=== PATIENT | female | born 1995 | race African-American/Black ===

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

== ENCOUNTER 2017-05-05 08:35 | Emergency (ER) | payer MEDICAID ==
[2017-05-05] MEDS ORDERED: IBUPROFEN 800 MG TABLET PO ONE (09:27)
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
[2017-05-05 10:46] VITALS: BP 141/86
== END 2017-05-05 10:47 | disposition home or self-care (01) ==
LOC: ER 08:35
DX: S63.615A Unspecified sprain of left ring finger, initial encounter (principal); Y04.0XXA Assault by unarmed brawl or fight, initial encounter; M79.642 Pain in left hand; M79.645 Pain in left finger(s); E11.9 Type 2 diabetes mellitus without complications; R03.0 Elevated blood-pressure reading, without diagnosis of hypertension; Z87.891 Personal history of nicotine dependence
CPT/HCPCS: 99283; 73130; J3490

== ENCOUNTER 2018-05-10 23:23 | Emergency (ER) | payer MEDICAID ==
[2018-05-10 23:39] VITALS: BP 167/92
--- NOTE | 2018-05-11 00:03 | ER Document Report ---
ED General - General Chief Complaint: Psych Problem Stated Complaint: SUICIDAL IDEATION Time Seen by Provider: 05/11/18 00:00 Notes: Patient is a 22-year-old female who presents by EMS for concerns of possible suicidal ideation. Patient states that a patrol police sergeant found her, states that a person named Jyoti had been concerned that she had made suicidal statements and should be taken to the hospital. Patient states that she was told she could either come voluntarily will be placed on involuntary commitment and transported to the hospital. The patient denies adamantly making any suicidal statements or gestures to anybody. She states that she should not be here, this is a waste of time, denies any acute medical complaints of any kind. TRAVEL OUTSIDE OF THE [place] IN LAST 30 DAYS: No - Related Data Allergies/Adverse Reactions: hydrocodone [From Vicodin] Adverse Reaction (Severe, Verified 05/05/17 09:12) Vomiting Past Medical History - General Information source: Patient - Social History Smoking Status: Never Smoker Frequency of alcohol use: None Drug Abuse: None Lives with: Homeless Family History: Reviewed & Not Pertinent - Past Medical History Cardiac Medical History: Denies: Hx Coronary Artery Disease, Hx Heart Attack, Hx Hypertension Pulmonary Medical History: Denies: Hx Asthma, Hx Bronchitis, Hx COPD, Hx Pneumonia Neurological Medical History: Denies: Hx Cerebrovascular Accident, Hx Seizures Endocrine Medical History: Reports: Hx Diabetes Mellitus Type 2 Renal/ Medical History: Denies: Hx Peritoneal Dialysis GI Medical History: Reports: Hx Gastroesophageal Reflux Disease Musculoskeltal Medical History: Denies Hx Arthritis Psychiatric Medical History: Reports: Hx Anxiety, Hx Depression - anxiety Past Surgical History: Reports: Hx Gynecologic Surgery - Rt. oophorectomy - Immunizations Immunizations up to date: Yes Hx Diphtheria, Pertussis, Tetanus Vaccination: Yes Review of Systems - Review of Systems Notes: Constitutional: Negative for fever. HENT: Negative for sore throat. Eyes: Negative for visual changes. Cardiovascular: Negative for chest pain. Respiratory: Negative for shortness of breath. Gastrointestinal: Negative for abdominal pain, vomiting or diarrhea. Genitourinary: Negative for dysuria. Musculoskeletal: Negative for back pain. Skin: Negative for rash. Neurological: Negative for headaches, weakness or numbness. 10 point ROS negative except as marked above and in HPI. Physical Exam - Vital signs Vitals: Pulse Resp BP Pulse Ox 86 16 167/92 H 99 05/10/18 23:27 05/10/18 23:27 05/10/18 23:27 05/10/18 23:27 Interpretation: Hypertensive Notes: PHYSICAL EXAMINATION: GENERAL: Well-appearing, well-nourished and in no acute distress. HEAD: Atraumatic, normocephalic. EYES: sclera anicteric, conjunctiva are normal. ENT: Moist mucous membranes. NECK: Normal range of motion LUNGS: Normal work of breathing HEART: 2+ radial pulses bilaterally EXTREMITIES: no pitting or edema. No cyanosis. NEUROLOGICAL: No focal neurological deficits. Moves all extremities spontaneously and on command. PSYCH: Normal mood, normal affect. SKIN: Warm, Dry, normal turgor, no rashes or lesions noted. Course - Re-evaluation Re-evalutation: 05/11/18 00:00 Patient presents after somebody alleged that she had expressed suicidal ideation although she does not know who this person is and the patient does not arrive on involuntary commitment paperwork. The patient adamantly denies any suicidal thoughts, intention to harm herself or any plans to harm herself. She states that she has no idea who the person "Jyoti" is and that she does not have any friends that she would have said she was suicidal to. She is quite clear in stating that in the past she has had suicidal thoughts but denies any recent suicidal thoughts stating "this is all a bunch of bullshit". There are no listed contacts or anybody who I could call to verify the original concern and the patient was not placed on involuntary commitment by the patrol police sergeant who originally transported her to the hospital. I therefore did not have any means by which she states the patient has expressed any plans to harm herself and she is quite clearly and adamantly denying any suicidal ideation at this time. She denies any acute medical concerns. She has not meet IVC criteria and would like to leave. I have offered her to remain in the emergency department if she would like and speak psychiatry which she has declined stating she does not need this service. - Vital Signs Vital signs: Temp Pulse Resp BP Pulse Ox 86 16 167/92 H 99 05/10/18 23:27 05/10/18 23:27 05/10/18 23:27 05/10/18 23:27 Discharge - Discharge Clinical Impression: Well adult health check, No complaints Condition: Good Disposition: HOME, SELF-CARE Additional Instructions: Please return if you have thoughts of wanting to hurt yourself, hurt others, or have any other symptoms that are concerning to you.
== END 2018-05-11 00:06 | disposition home or self-care (01) ==
LOC: ER 23:23
DX: Z71.1 Person with feared health complaint in whom no diagnosis is made (principal); E11.9 Type 2 diabetes mellitus without complications
CPT/HCPCS: 99284

== ENCOUNTER 2018-07-09 03:55 | Emergency (ER) | payer MEDICAID ==
--- NOTE | 2018-07-09 05:13 | ER Document Report ---
ED General - General Chief Complaint: Overdose Stated Complaint: POSSIBLE OVERDOSE Time Seen by Provider: 07/09/18 04:44 TRAVEL OUTSIDE OF THE [place] IN LAST 30 DAYS: No - HPI Notes: Patient is a 22-year-old female that presents to the emergency department for chief complaint of Benadryl overdose. Patient presents to the emergency room by EMS for Benadryl overdose. HPI is limited because patient is not cooperative and EMS report given prior to my evaluation. EMS was called by patient's friend who found her sleeping heavily on the couch. Patient endorsed taking "a lot" of Benadryl. She is not sure when she took the Benadryl. She will not tell me why she took "a lot" of Benadryl. When I asked if she is suicidal or trying to hurt herself she will not answer the question and only states "you cannot commit me to the hospital". Patient has linear cuts on her arm and when I asked her how she got them she will not answer and just tells me they are old. I asked her specifically did she cut herself and again she would not answer. She did state "I am going to be difficult and not cooperate with you". She currently has no complaints. Past Medical History: Anxiety and depression Past Surgical History: Unknown Social History: Unknown Family History: Reviewed and noncontributory for presenting illness Allergies: Reviewed, see documented allergy list. REVIEW OF SYSTEMS: CONSTITUTIONAL : No fever No chills No diaphoresis No recent illness EENT: No vision changes No congestion No sore throat CARDIOVASCULAR: No chest pain No palpitations No shortness of breath RESPIRATORY: No shortness of breath No cough No difficulty breathing GASTROINTESTINAL: No abdominal pain No nausea No vomiting No diarrhea GENITOURINARY: No dysuria No hematuria No difficulty urinating MUSCULOSKELETAL: No back pain No leg pain No arm pain SKIN: No rashes No lesions LYMPHATIC: No swollen, enlarged glands. NEUROLOGICAL: No lightheadedness No headache No weakness No paresthesias PSYCHIATRIC: No anxiety No depression PHYSICAL EXAMINATION: Vital signs reviewed, nursing noted reviewed. GENERAL: Well-appearing, well-nourished and in no acute distress. HEAD: Atraumatic, normocephalic. EYES: Eyes appear normal, extraocular movements intact, sclera anicteric, conjunctiva are normal. ENT: nares patent, oropharynx clear without exudates. Moist mucous membranes. NECK: Normal range of motion, supple without lymphadenopathy LUNGS: Breath sounds clear to auscultation bilaterally and equal. No wheezes rales or rhonchi. HEART: Regular rate and rhythm without murmurs ABDOMEN: Soft, nontender, normoactive bowel sounds. No rebound, guarding, or rigidity. No masses appreciated. EXTREMITIES: Nontender, good range of motion, no pitting or edema. NEUROLOGICAL: No focal neurological deficits. Moves all extremities spontaneously Motor and sensory grossly intact on exam. PSYCH: No eye contact, agitated, not cooperative SKIN: Warm, Dry, normal turgor. Multiple linear superficial lacerations to left forearm with dried blood. No active bleeding. Bilateral forearm linear scars and right anterior thigh linear scar. No acute lacerations to lower extremities. - Related Data Allergies/Adverse Reactions: hydrocodone [From Vicodin] Adverse Reaction (Severe, Verified 05/05/17 09:12) Vomiting Past Medical History - Social History Smoking Status: Unknown if Ever Smoked Family History: Reviewed & Not Pertinent Patient has suicidal ideation: No Patient has homicidal ideation: No - Past Medical History Cardiac Medical History: Denies: Hx Coronary Artery Disease, Hx Heart Attack, Hx Hypertension Pulmonary Medical History: Denies: Hx Asthma, Hx Bronchitis, Hx COPD, Hx Pneumonia Neurological Medical History: Denies: Hx Cerebrovascular Accident, Hx Seizures Endocrine Medical History: Reports: Hx Diabetes Mellitus Type 2 Renal/ Medical History: Denies: Hx Peritoneal Dialysis GI Medical History: Reports: Hx Gastroesophageal Reflux Disease Musculoskeletal Medical History: Denies Hx Arthritis Psychiatric Medical History: Reports: Hx Anxiety, Hx Depression - anxiety Past Surgical History: Reports: Hx Gynecologic Surgery - Rt. oophorectomy - Immunizations Immunizations up to date: Yes Hx Diphtheria, Pertussis, Tetanus Vaccination: Yes Review of Systems - Review of Systems Notes: Dictated Physical Exam - Vital signs Vitals: Resp Pulse Ox 21 H 100 07/09/18 04:06 07/09/18 04:06 - Notes Notes: Dictated Course - Re-evaluation Re-evalutation: 07/09/18 05:13 Vital signs reviewed. Patient is hypertensive with unknown history of hypertension. She does admit to taking "a lot" of Benadryl but will not tell me why. I do suspect she is intending self-harm. She has superficial abrasions consistent with self-inflicted cuts on her left forearm. She is in no acute distress and is mentating appropriately. She has no signs of anticholinergic overdose at presentation. Case was discussed with poison control who recommends monitoring for 6 hours. If patient still not displaying any symptoms of anticholinergic overdose at 6 hours she is able to be medically cleared for psychiatric evaluation. 07/09/18 06:05 Laboratory 07/09/18 07/09/18 07/09/18 05:04 05:04 05:04 WBC 11.1 H RBC 4.50 Hgb 11.5 L Hct 35.5 L MCV 79 L MCH 25.5 L MCHC 32.3 RDW 15.1 H Plt Count 209 Seg Neutrophils % 61.0 Lymphocytes % 31.1 Monocytes % 5.2 Eosinophils % 2.2 Basophils % 0.5 Absolute Neutrophils 6.8 Absolute Lymphocytes 3.4 Absolute Monocytes 0.6 Absolute Eosinophils 0.2 Absolute Basophils 0.1 Sodium 141.0 Potassium 4.2 Chloride 108 H Carbon Dioxide 20 L Anion Gap 13 BUN 8 Creatinine 0.75 Est GFR ( Amer) > 60 Est GFR (Non-Af Amer) > 60 Glucose 84 Calcium 9.2 Total Bilirubin 0.4 Direct Bilirubin 0.3 Neonat Total Bilirubin Not Reportable Neonat Direct Bilirubin Not Reportable Neonat Indirect Bili Not Reportable AST 29 ALT 31 Alkaline Phosphatase 60 Total Protein 8.0 Albumin 4.2 Serum HCG, Qual NEGATIVE Salicylates < 1.0 L Acetaminophen < 10 L Serum Alcohol < 10 Care signed over to Dr. Cabrera with Urine results pending. Plan to obtain psych evaluaiton this AM for possible suicide attempt. If asymptomatic at 10:30 she can be medically cleared for psychiatric evaluation. - Vital Signs Vital signs: Temp Pulse Resp BP Pulse Ox 20 152/104 H 100 07/09/18 04:07 07/09/18 04:07 07/09/18 04:07 - Laboratory Result Diagrams: 07/09/18 05:04 07/09/18 05:04 Laboratory results interpreted by me: 07/09/18 07/09/18 05:04 05:04 WBC 11.1 H Hgb 11.5 L Hct 35.5 L MCV 79 L MCH 25.5 L RDW 15.1 H Chloride 108 H Carbon Dioxide 20 L Salicylates < 1.0 L Acetaminophen < 10 L - EKG Interpretation by Me Additional EKG results interpreted by me: 07/09/18 06:05 Normal sinus rhythm, rate 75, normal axis, normal QTC, no ectopy, T-wave inversion in lead III Discharge - Discharge Clinical Impression: Diphenhydramine overdose Qualifiers: Encounter type: initial encounter Injury intent: undetermined intent Qualified Code(s): T45.0X4A - Poisoning by antiallergic and antiemetic drugs, undetermined , initial encounter Forearm laceration Qualifiers: Encounter type: initial encounter Laterality: left Qualified Code(s): S51.812A - Laceration without foreign body of left forearm, initial encounter
[2018-07-09 05:15] LABS: ABSOLUTE BASOPHILS # (AUTO) 0.1 10^3/uL (0.0-0.2); ABSOLUTE EOSINOPHILS # (AUTO) 0.2 10^3/uL (0.0-0.6); ABSOLUTE LYMPHOCYTES (AUTO) 3.4 10^3/uL (0.5-4.7); ABSOLUTE MONOCYTES (AUTO) 0.6 10^3/uL (0.1-1.4); ABSOLUTE NEUT (AUTO) 6.8 10^3/uL (1.7-8.2); BASOPHILS % (AUTO) 0.5 % (0-2); EOSINOPHILS % (AUTO) 2.2 % (0-6); HEMATOCRIT 35.5 % (36.0-47.0); HEMOGLOBIN 11.5 g/dL (12.0-15.5); LYMPHOCYTES % (AUTO) 31.1 % (13-45); MEAN CORPUSCULAR HEMOGLOBIN 25.5 pg (27.0-33.4); MEAN CORPUSCULAR HGB CONC 32.3 g/dL (32.0-36.0); MEAN CORPUSCULAR VOLUME 79 fl (80-97); MONOCYTES % (AUTO) 5.2 % (3-13); PLATELET COUNT 209 10^3/uL (150-450); RED CELL DISTRIBUTION WIDTH 15.1 % (11.5-14.0); TOTAL CELLS COUNTED % (AUTO) 100 %; WHITE BLOOD COUNT 11.1 10^3/uL (4.0-10.5)
[2018-07-09 05:36] LABS: ALANINE AMINOTRANSFERASE 31 U/L (9-52); ALBUMIN 4.2 g/dL (3.5-5.0); ALKALINE PHOSPHATASE 60 U/L (38-126); ANION GAP 13 (5-19); ASPARTATE AMINO TRANSFERASE 29 U/L (14-36); BILIRUBIN,DIRECT 0.3 mg/dL (0.0-0.4); BILIRUBIN,TOTAL 0.4 mg/dL (0.2-1.3); BLOOD UREA NITROGEN 8 mg/dL (7-20); CALCIUM 9.2 mg/dL (8.4-10.2); CARBON DIOXIDE 20 mmol/L (22-30); CHLORIDE 108 mmol/L (98-107); GLUCOSE 84 mg/dL (75-110); POTASSIUM 4.2 mmol/L (3.6-5.0)
[2018-07-09 05:40] LABS: ACETAMINOPHEN < 10 ug/mL (10-30); ALCOHOL < 10 mg/dL (NONE DETECTED); SALICYLATE < 1.0 mg/dL (2.0-20.0)
[2018-07-09 10:07] LABS: AMORPHOUS SEDIMENT,URINE TRACE /HPF; APPEARANCE,URINE CLEAR; BILIRUBIN,URINE NEGATIVE (NEGATIVE); COLOR,URINE YELLOW; GLUCOSE, URINE NEGATIVE (NEGATIVE); KETONES,URINE NEGATIVE (NEGATIVE); LEUKOCYTE ESTERASE,URINE TRACE (NEGATIVE); NITRITE,URINE NEGATIVE (NEGATIVE); PROTEIN,URINE NEGATIVE (NEGATIVE); URINE SPECIFIC GRAVITY 1.019
--- NOTE | 2018-07-09 10:08 | ER Document Report ---
Doctor's Note Notes: 07/09/18 10:06 Rounds: Chart reviewed and patient interviewed. Patient is here to be evaluated for an overdose of Benadryl. Lab studies were all essentially normal. Patient's EKG is normal. No arrhythmias or QT changes. Vital signs are all normal. Patient says she is hungry and wants something to eat. Patient appears to be medically stable for transfer or discharge. Danika Muse MD 07/09/18 12:28 Patient's drug screen came back positive for benzos, cocaine, and marijuana. Repeat vitals are all normal. No tachycardia noted. I do not think that the patient is going to suffer any adverse outcome from the Benadryl and cocaine. Patient appears to be medically stable for transfer or discharge. Danika Muse MD
[2018-07-09 10:23] LABS: URINE AMPHETAMINES SCREEN NEGATIVE; URINE BARBITURATES SCREEN NEGATIVE; URINE BENZODIAZEPINES SCREEN UNCONFIRMED POSITIVE; URINE COCAINE SCREEN UNCONFIRMED POSITIVE; URINE MARIJUANA (THC) SCREEN UNCONFIRMED POSITIVE; URINE METHADONE SCREEN NEGATIVE; URINE PHENCYCLIDINE SCREEN NEGATIVE
--- NOTE | 2018-07-09 13:13 | EKG REPORT ---
SEVERITY:- NORMAL ECG - SINUS RHYTHM : Confirmed by: Pa Urias MD 09-Jul-2018 13:12:40
--- NOTE | 2018-07-09 14:22 | PSYCHOLOGICAL NOTE ---
Psych Note - Psych Note Psych Note: Reason for consult: Intentional overdose Contact permissions: Patient refused Patient is a 22-year-old female that presents to the emergency department for chief complaint of Benadryl overdose. Patient discloses that she arrived to [facility] ED via EMS because her sister called. She states that they called because "they said I took too much Benadryl." Patient denies this stating "I didn't take that much... not enough to kill me... I only took 5." When asked why she took the medication she stated that someone told her it would help her sleep. When asked about her cocaine use she denied saying that it has been a long time since she has used. One reminded it was in her toxicology screening patient became irritable and defensive. When asked if she received any marijuana that was laced she stated, "you saw the marijuana too?.. do you think my blunt was laced?" Patient denies wanting to hurt herself or others and states that she has had mental health services through [facility] in the past but has been off medication for years. She reports that she would like to get back into therapy. She states she has diagnosis of anxiety and depression. Patient is alert and orientated to person, place, time and circumstance. Mood is slightly irritable with congruent affect. Patient denies suicidal and homicidal ideation. Delusions are absent behaviors congruent with an intact reality based presentation i.e. organized and linear thought process. Eye contact is fair. Conversational speech was within normal rate, tone and prosody. Intellectual abilities appear to be below average range. Attention and concentration are fair. Insight, judgment, impulse control are fair. 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 Patient no longer meets IVC criteria per [place] GS 122C. Patient states she took Benadryl to try to get some sleep. Patient also has marijuana, cocaine, and benzodiazepines in her system. Patient attempted to deny using any drugs but then asked "do you think my blunt was laced?" Patient is recommended for mental health and substance abuse outpatient treatment. Patient is primary outpatient mental health provider [facility]. Dr. Cannon was consulted and the care and management of this patient; attending physician is agreement with recommendations and disposition.
[2018-07-09 15:04] VITALS: BP 146/82
== END 2018-07-09 15:13 | disposition home or self-care (01) ==
LOC: ER 03:55
DX: T45.0X4A Poisoning by antiallergic and antiemetic drugs, undetermined, initial encounter (principal); S51.812A Laceration without foreign body of left forearm, initial encounter; X58.XXXA Exposure to other specified factors, initial encounter; E11.9 Type 2 diabetes mellitus without complications; I10 Essential (primary) hypertension
CPT/HCPCS: 36415; 80053; 80307; 81001; 84703; 85025; 93005; 93010; 99285

== ENCOUNTER 2018-10-13 19:25 | Emergency (ER) | payer MEDICAID ==
[2018-10-13] MEDS ORDERED: ONDANSETRON HCL INJ/PF 4 MG/2 ML SDV IV ONE (20:34)
[2018-10-13] MEDS ORDERED: NORMAL SALINE 1000 ML 1,000 ML IV ONE (20:34)
--- NOTE | 2018-10-13 20:36 | ER Document Report ---
ED Medical Screen (RME) - General Chief Complaint: Nausea/Vomiting/Diarrhea Stated Complaint: VOMITING Time Seen by Provider: 10/13/18 20:30 Notes: Patient is a 22-year-old female that presents to the emergency department for chief complaint of multiple complaints including generalized body aches, lightheadedness, nausea, vomiting. Patient also thinks she may be , potentially up to 4 months, she states she has had one positive and one negative home test but she does not recall when that was. ROS: Other than noted above, the 12 point review of systems was reviewed with the patient and were negative, all pertinent findings are included in the HPI. PHYSICAL EXAMINATION: Vital signs reviewed. GENERAL: Well-appearing, well-nourished and in no acute distress. HEAD: Atraumatic, normocephalic. EYES: Pupils equal round extraocular movements intact, conjunctiva are normal. ENT: Nares patent NECK: Normal range of motion CV: Heart regular rate and rhythm LUNGS: No respiratory distress Abdomen: Mild abdominal tenderness to palpation, does not appear to be gravid. Musculoskeletal: Normal range of motion NEUROLOGICAL: Normal speech PSYCH: Normal mood, normal affect. MDM: Patient seen and examined for rapid initial assessment. Vital signs reviewed. A comprehensive ED assessment and evaluation of the patient, analysis of test results and completion of the medical decision making process will be conducted by additional ED providers. *Note is created using voice recognition software and may contain spelling, syntax or grammatical errors. TRAVEL OUTSIDE OF THE [place] IN LAST 30 DAYS: No - Related Data Allergies/Adverse Reactions: acetaminophen Allergy (Severe, Verified 10/13/18 20:33) Swelling of hands and/or feet hydrocodone [From Vicodin] Adverse Reaction (Severe, Verified 05/05/17 09:12) Vomiting Past Medical History - Past Medical History Cardiac Medical History: Denies: Hx Coronary Artery Disease, Hx Heart Attack, Hx Hypertension Pulmonary Medical History: Denies: Hx Asthma, Hx Bronchitis, Hx COPD, Hx Pneumonia Neurological Medical History: Denies: Hx Cerebrovascular Accident, Hx Seizures Endocrine Medical History: Reports: Hx Diabetes Mellitus Type 2 Renal/ Medical History: Denies: Hx Peritoneal Dialysis GI Medical History: Reports: Hx Gastroesophageal Reflux Disease Musculoskeltal Medical History: Denies Hx Arthritis Psychiatric Medical History: Reports: Hx Anxiety, Hx Depression - anxiety Past Surgical History: Reports: Hx Gynecologic Surgery - Rt. oophorectomy - Immunizations Immunizations up to date: Yes Hx Diphtheria, Pertussis, Tetanus Vaccination: Yes Physical Exam - Vital signs Vitals: Temp Pulse Resp BP Pulse Ox 98.8 F 110 H 20 147/97 H 100 10/13/18 19:46 10/13/18 19:46 10/13/18 19:46 10/13/18 19:46 10/13/18 19:46 Course - Vital Signs Vital signs: Temp Pulse Resp BP Pulse Ox 98.8 F 110 H 20 147/97 H 100 10/13/18 19:46 10/13/18 19:46 10/13/18 19:46 10/13/18 19:46 10/13/18 19:46
[2018-10-13 22:24] LABS: ABSOLUTE BASOPHILS # (AUTO) 0.1 10^3/uL (0.0-0.2); ABSOLUTE EOSINOPHILS # (AUTO) 0.2 10^3/uL (0.0-0.6); ABSOLUTE LYMPHOCYTES (AUTO) 4.6 10^3/uL (0.5-4.7); ABSOLUTE MONOCYTES (AUTO) 0.7 10^3/uL (0.1-1.4); ABSOLUTE NEUT (AUTO) 12.3 10^3/uL (1.7-8.2); BASOPHILS % (AUTO) 0.6 % (0-2); HEMATOCRIT 37.5 % (36.0-47.0); HEMOGLOBIN 12.2 g/dL (12.0-15.5); LYMPHOCYTES % (AUTO) 25.9 % (13-45); MEAN CORPUSCULAR HGB CONC 32.6 g/dL (32.0-36.0); MEAN CORPUSCULAR VOLUME 80 fl (80-97); MONOCYTES % (AUTO) 3.9 % (3-13); PLATELET COUNT 283 10^3/uL (150-450); RED CELL DISTRIBUTION WIDTH 14.8 % (11.5-14.0); SEGMENTED NEUTROPHILS % (AUTO) 68.6 % (42-78); TOTAL CELLS COUNTED % (AUTO) 100 %; WHITE BLOOD COUNT 17.9 10^3/uL (4.0-10.5)
[2018-10-13 22:42] LABS: ALANINE AMINOTRANSFERASE 16 U/L (9-52); ALBUMIN 4.9 g/dL (3.5-5.0); ALKALINE PHOSPHATASE 68 U/L (38-126); ANION GAP 12 (5-19); ASPARTATE AMINO TRANSFERASE 22 U/L (14-36); BILIRUBIN,DIRECT 0.3 mg/dL (0.0-0.4); BILIRUBIN,TOTAL 0.3 mg/dL (0.2-1.3); BLOOD UREA NITROGEN 12 mg/dL (7-20); CALCIUM 9.5 mg/dL (8.4-10.2); CARBON DIOXIDE 25 mmol/L (22-30); CHLORIDE 104 mmol/L (98-107); GLUCOSE 79 mg/dL (75-110); POTASSIUM 4.4 mmol/L (3.6-5.0); SODIUM 140.9 mmol/L (137-145); TOTAL PROTEIN 8.9 g/dL (6.3-8.2)
[2018-10-13 22:47] LABS: APPEARANCE,URINE SLIGHTLY-CLOUDY; BILIRUBIN,URINE NEGATIVE (NEGATIVE); COLOR,URINE YELLOW; GLUCOSE, URINE NEGATIVE (NEGATIVE); KETONES,URINE NEGATIVE (NEGATIVE); LEUKOCYTE ESTERASE,URINE SMALL (NEGATIVE); NITRITE,URINE NEGATIVE (NEGATIVE); PROTEIN,URINE 30 mg/dL (NEGATIVE); URINE SPECIFIC GRAVITY 1.029
[2018-10-13 23:07] LABS: A TYPE INFLUENZA AG NEGATIVE (NEGATIVE); B INFLUENZA AG NEGATIVE (NEGATIVE)
--- NOTE | 2018-10-13 23:22 | RADIOLOGY REPORT (SQ) ---
EXAM DESCRIPTION: XR CHEST 2 VIEWS COMPLETED DATE/TME: 10/13/2018 20:34 CLINICAL HISTORY: 22 years, Female, cough COMPARISON: None. NUMBER OF VIEWS: 2 TECHNIQUE: Frontal and lateral views of the chest LIMITATIONS: None. FINDINGS: Heart size is normal. Lungs are clear. No pneumothorax IMPRESSION: Negative chest copyright 2010 [employer]- All Rights Reserved
--- NOTE | 2018-10-13 23:59 | ER Document Report ---
ED GI/ - General Chief Complaint: Nausea/Vomiting/Diarrhea Stated Complaint: VOMITING Time Seen by Provider: 10/13/18 23:47 Information source: Patient Notes: Patient is a 22-year-old female with a history of ovarian cysts as well as other chronic health conditions including mental illness who presents with report of "full body pain" that began earlier today. Patient is tearful and reports pain is "all over my body," is an aching sensation that comes and goes, also has a small amount of lower abdominal discomfort that is identical in character and quality. Patient denies taking medication before coming to the emergency department. She denies known injury, no dysuria or hematuria, no diarrhea, no vaginal bleeding or discharge. TRAVEL OUTSIDE OF THE [place] IN LAST 30 DAYS: No - HPI Patient complains to provider of: Abdominal pain Onset: This afternoon Timing/Duration: Sudden Quality of pain: Achy, Cramping Severity at maximum: Moderate Severity in ED: Moderate Pain Level: 2 Location: Low back Vaginal bleeding (Compared to normal period): None Sexual history: Active Associated symptoms: Other - Body aches Exacerbated by: Denies Relieved by: Denies Similar symptoms previously: No Recently seen / treated by doctor: No - Related Data Allergies/Adverse Reactions: acetaminophen Allergy (Severe, Verified 10/13/18 20:33) Swelling of hands and/or feet hydrocodone [From Vicodin] Adverse Reaction (Severe, Verified 05/05/17 09:12) Vomiting Past Medical History - General Information source: Patient - Social History Smoking Status: Unknown if Ever Smoked Chew tobacco use (# tins/day): No Frequency of alcohol use: None Drug Abuse: None Lives with: Alone Family History: Reviewed & Not Pertinent Patient has suicidal ideation: No Patient has homicidal ideation: No - Past Medical History Cardiac Medical History: Reports: None Denies: Hx Coronary Artery Disease, Hx Heart Attack, Hx Hypertension Pulmonary Medical History: Reports: None Denies: Hx Asthma, Hx Bronchitis, Hx COPD, Hx Pneumonia EENT Medical History: Reports: None Neurological Medical History: Reports: None. Denies: Hx Cerebrovascular Accident, Hx Seizures Endocrine Medical History: Reports: Hx Diabetes Mellitus Type 2 Renal/ Medical History: Reports: None. Denies: Hx Peritoneal Dialysis Malignancy Medical History: Reports: None GI Medical History: Reports: None, Hx Gastroesophageal Reflux Disease Musculoskeletal Medical History: Reports None, Denies Hx Arthritis Skin Medical History: Reports None Psychiatric Medical History: Reports: Hx Anxiety, Hx Depression - anxiety Traumatic Medical History: Reports: None Infectious Medical History: Reports: None Past Surgical History: Reports: Hx Gynecologic Surgery - Rt. oophorectomy - Immunizations Immunizations up to date: Yes Hx Diphtheria, Pertussis, Tetanus Vaccination: Yes Review of Systems - Review of Systems Constitutional: No symptoms reported EENT: No symptoms reported Cardiovascular: No symptoms reported Respiratory: No symptoms reported Gastrointestinal: See HPI, Abdominal pain. denies: Vomiting Genitourinary: See HPI Female Genitourinary: No symptoms reported Musculoskeletal: See HPI, Back pain, Muscle pain Skin: No symptoms reported Hematologic/Lymphatic: No symptoms reported Neurological/Psychological: No symptoms reported -: Yes All other systems reviewed and negative Physical Exam - Vital signs Vitals: Temp Pulse Resp BP Pulse Ox 98.8 F 110 H 20 147/97 H 100 10/13/18 19:46 10/13/18 19:46 10/13/18 19:46 10/13/18 19:46 10/13/18 19:46 Interpretation: Normal - General General appearance: Appears well, Alert In distress: None - HEENT Head: Normocephalic, Atraumatic Eyes: Normal Pupils: PERRL - Respiratory Respiratory status: No respiratory distress Chest status: Nontender Breath sounds: Normal Chest palpation: Normal - Cardiovascular Rhythm: Regular Heart sounds: Normal auscultation Murmur: No - Abdominal Inspection: Normal Distension: No distension Bowel sounds: Normal Tenderness: Nontender Organomegaly: No organomegaly - Rectal Notes: Deferred - Genitourinary Notes: Deferred - Back Back: Normal, Nontender - Extremities General upper extremity: Normal inspection, Nontender, Normal color, Normal ROM , Normal temperature General lower extremity: Normal inspection, Nontender, Normal color, Normal ROM , Normal temperature, Normal weight bearing. No: Moni's sign - Neurological Neuro grossly intact: Yes Cognition: Normal Orientation: AAOx4 [place] Coma Scale Eye Opening: Spontaneous Wendi Coma Scale Verbal: Oriented Wendi Coma Scale Motor: Obeys Commands [place] Coma Scale Total: 15 Speech: Normal Motor strength normal: LUE, RUE, LLE, RLE Sensory: Normal - Psychological Associated symptoms: Normal affect, Normal mood - Skin Skin Temperature: Warm Skin Moisture: Dry Skin Color: Normal Course - Re-evaluation Re-evalutation: 10/14/18 00:32 Patient is tearful during the encounter and is very vague when she explains her symptoms. Blood work shows mild elevated white count otherwise unremarkable. Patient is not . She will be given oral Motrin and will be discharged home with return precautions and follow-up as needed. Patient states understanding and agreeing with the plan. - Vital Signs Vital signs: Temp Pulse Resp BP Pulse Ox 98.8 F 110 H 20 147/97 H 100 10/13/18 19:46 10/13/18 19:46 10/13/18 19:46 10/13/18 19:46 10/13/18 19:46 - Laboratory Result Diagrams: 10/13/18 22:10 10/13/18 22:10 Laboratory results interpreted by me: 10/13/18 10/13/18 10/13/18 22:10 22:10 22:10 WBC 17.9 H MCH 26.0 L RDW 14.8 H Absolute Neutrophils 12.3 H Total Protein 8.9 H Urine Protein 30 H Urine Urobilinogen 2.0 H Ur Leukocyte Esterase SMALL H - Diagnostic Test Radiology reviewed: Reports reviewed Discharge - Discharge Clinical Impression: Generalized body aches Back pain Qualifiers: Back pain location: low back pain Chronicity: acute Back pain laterality: midline Sciatica presence: without sciatica Qualified Code(s): M54.5 - Low back pain Condition: Good Disposition: HOME, SELF-CARE Instructions: Low Back Pain ([facility]), Family Physicians / Practices Additional Instructions: Please follow-up with one of the resources he has been provided with to establish care with a primary physician. Return to the emergency department if you experience inability to walk, difficulty urinating, high fevers, or have any other concerning symptom. Prescriptions: Diclofenac Sodium 75 mg PO BID 15 Days #30 tablet.dr Print Language: Beninese
[2018-10-14] MEDS ORDERED: IBUPROFEN 600 MG TABLET PO ONE (00:25)
[2018-10-14 00:53] VITALS: BP 138/81
== END 2018-10-14 00:38 | disposition home or self-care (01) ==
LOC: ER 19:25
DX: M79.10 Myalgia, unspecified site (principal); M54.5 Low back pain; R11.2 Nausea with vomiting, unspecified; R19.7 Diarrhea, unspecified; R10.30 Lower abdominal pain, unspecified; E11.9 Type 2 diabetes mellitus without complications
CPT/HCPCS: 99284; 96361; 96374; 36415; 84703; 85025; 80053; 81001; 87804; 71046; J3490; J2405; J7030

== ENCOUNTER 2018-10-25 22:18 | Emergency (ER) | payer MEDICAID ==
[2018-10-25] MEDS ORDERED: OXYCODONE-ACETAMINOPHEN 5-325 MG TABLET PO ONE (22:55)
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
--- NOTE | 2018-10-25 23:33 | RADIOLOGY REPORT (SQ) ---
EXAM DESCRIPTION: XR HAND 3 OR MORE VIEWS COMPLETED DATE/TME: 10/25/2018 22:54 CLINICAL HISTORY: 22 years, Female, right hand pain, injury COMPARISON: None. NUMBER OF VIEWS: 3 TECHNIQUE: 3 view right hand LIMITATIONS: None. FINDINGS: Subtle deformity of the fifth metacarpal consistent with old healed fracture deformity. No radiographic evidence for acute fracture or dislocation. IMPRESSION: Old healed fifth metacarpal fracture. Negative for acute abnormality copyright 2010 [employer]- All Rights Reserved
[2018-10-26 04:16] VITALS: BP 163/106
== END 2018-10-26 04:16 | disposition home or self-care (01) ==
LOC: ER 22:18
PROC: 2W3CX1Z Immobilization of Right Lower Arm using Splint (ICD-10-PCS; principal; 2018-10-25)
DX: M25.531 Pain in right wrist (principal); S09.90XA Unspecified injury of head, initial encounter; Y09 Assault by unspecified means; E11.9 Type 2 diabetes mellitus without complications; Z88.6 Allergy status to analgesic agent; Z88.1 Allergy status to other antibiotic agents
CPT/HCPCS: 29125; 99283; 73130; L3908

== ENCOUNTER 2019-01-17 11:12 | Emergency (ER) | payer SELFPAY ==
[2019-01-17 11:33] VITALS: BP 144/99
--- NOTE | 2019-01-17 11:44 | ER Document Report ---
ED Medical Screen (RME) - General Chief Complaint: Suicidal Ideation Stated Complaint: PSYCH EVAL Time Seen by Provider: 01/17/19 11:41 Mode of Arrival: Ambulatory Information source: Patient TRAVEL OUTSIDE OF THE [place] IN LAST 30 DAYS: No - HPI Patient complains to provider of: Depression Notes: 01/17/19 11:43 Patient is a 23-year-old female who was advised to come to the emergency room by mobile crisis secondary to depression with possible suicidal ideation, patient reports she has been depressed for quite some time but denies suicidal thoughts to me, admits that she is not currently in any type of therapy or mental health program and does not currently take any medications 01/17/19 11:43 RAPID MEDICAL EVALUATION DISCLOSURE I have seen this patient as part of a Rapid Medical Evaluation and, if applicable, placed any initially appropriate orders. The patient will be seen and fully evaluated, including a full history and physical exam, by a provider (in Main ED or Fast Track) when a room becomes available. - Related Data Allergies/Adverse Reactions: acetaminophen Allergy (Severe, Verified 01/17/19 11:24) Swelling of hands and/or feet hydrocodone [From Vicodin] Adverse Reaction (Severe, Verified 01/17/19 11:24) Vomiting Past Medical History - Social History Frequency of alcohol use: None Drug Abuse: None - Past Medical History Cardiac Medical History: Denies: Hx Coronary Artery Disease, Hx Heart Attack, Hx Hypertension Pulmonary Medical History: Denies: Hx Asthma, Hx Bronchitis, Hx COPD, Hx Pneumonia Neurological Medical History: Denies: Hx Cerebrovascular Accident, Hx Seizures Endocrine Medical History: Reports: Hx Diabetes Mellitus Type 2 Renal/ Medical History: Denies: Hx Peritoneal Dialysis GI Medical History: Reports: Hx Gastroesophageal Reflux Disease Musculoskeltal Medical History: Denies Hx Arthritis Psychiatric Medical History: Reports: Hx Anxiety, Hx Depression - anxiety Past Surgical History: Reports: Hx Gynecologic Surgery - Rt. oophorectomy - Immunizations Immunizations up to date: Yes Hx Diphtheria, Pertussis, Tetanus Vaccination: Yes Physical Exam - Vital signs Vitals: Temp Pulse Resp BP Pulse Ox 98.7 F 104 H 17 144/99 H 100 01/17/19 11:30 01/17/19 11:30 01/17/19 11:30 01/17/19 11:30 01/17/19 11:30 Course - Re-evaluation Re-evalutation: 01/17/19 11:54 Notified by nursing staff that patient eloped shortly after my initial medical screening exam, since she denied suicidal ideation to both myself and the nurse she does not meet criteria for involuntary commitment at this time, mobile crisis was notified as they initially recommended for patient to come to the emergency department - Vital Signs Vital signs: Temp Pulse Resp BP Pulse Ox 98.7 F 104 H 17 144/99 H 100 01/17/19 11:30 01/17/19 11:30 01/17/19 11:30 01/17/19 11:30 01/17/19 11:30 Doctor's Discharge - Discharge Disposition: ELOPED
== END 2019-01-17 11:49 | disposition left against medical advice (07) ==
LOC: ER 11:12
DX: F32.9 Major depressive disorder, single episode, unspecified (principal); E11.9 Type 2 diabetes mellitus without complications; Z88.6 Allergy status to analgesic agent; Z53.20 Procedure and treatment not carried out because of patient's decision for unspecified reasons
CPT/HCPCS: 99281

== ENCOUNTER 2019-01-29 07:04 | Emergency (ER) | payer SELFPAY ==
[2019-01-29] MEDS ORDERED: ONDANSETRON 4 MG TAB.RAPDIS PO ONE (07:32)
[2019-01-29] MEDS ORDERED: IBUPROFEN 800 MG TABLET PO ONE (07:32)
--- NOTE | 2019-01-29 08:11 | RADIOLOGY REPORT (SQ) ---
EXAM DESCRIPTION: CHEST 2 VIEWS COMPLETED DATE/TIME: 01/29/2019 8:01 am REASON FOR STUDY: cough, chest pain COMPARISON: Two-view chest 10/13/2018 EXAM PARAMETERS: NUMBER OF VIEWS: two views TECHNIQUE: Digital Frontal and Lateral radiographic views of the chest acquired. RADIATION DOSE: NA LIMITATIONS: none FINDINGS: LUNGS AND PLEURA: No opacities, masses or pneumothorax. No pleural effusion. MEDIASTINUM AND HILAR STRUCTURES: No masses or contour abnormalities. HEART AND VASCULAR STRUCTURES: Heart normal size. No evidence for failure. BONES: No acute findings. HARDWARE: None in the chest. OTHER: No other significant finding. IMPRESSION: NO ACUTE RADIOGRAPHIC FINDING IN THE CHEST. TECHNICAL DOCUMENTATION: JOB ID: [id number] [employer]- All Rights Reserved Reading location - IP/workstation name: [email or web address]
[2019-01-29 09:45] LABS: APPEARANCE,URINE CLOUDY; BILIRUBIN,URINE NEGATIVE (NEGATIVE); COLOR,URINE YELLOW; GLUCOSE, URINE NEGATIVE (NEGATIVE); KETONES,URINE NEGATIVE (NEGATIVE); LEUKOCYTE ESTERASE,URINE LARGE (NEGATIVE); NITRITE,URINE NEGATIVE (NEGATIVE); PROTEIN,URINE NEGATIVE (NEGATIVE); URINE SPECIFIC GRAVITY 1.015; UROBILINOGEN,URINE NEGATIVE mg/dL (<2.0)
--- NOTE | 2019-01-29 11:21 | ER Document Report ---
ED General - General Chief Complaint: Shortness Of Breath Stated Complaint: DIFFICULTY BREATHING Time Seen by Provider: 01/29/19 07:23 TRAVEL OUTSIDE OF THE [place] IN LAST 30 DAYS: No - HPI Notes: Patient presents emergency department for evaluation. She is complaining of chest wall pain that radiates around to her back. Is worsened with deep breaths and movement. She states she has had 2 episodes of emesis in the last 24 hours. She states she is vomiting up just the food and liquid she been taking in. She has had some urinary frequency as well. Denies any dysuria. No known fevers, states she may have been chilled. Not coughing, no sore throat. - Related Data Allergies/Adverse Reactions: acetaminophen Allergy (Severe, Verified 01/17/19 11:24) Swelling of hands and/or feet hydrocodone [From Vicodin] Adverse Reaction (Severe, Verified 01/17/19 11:24) Vomiting Past Medical History - General Information source: Patient - Social History Smoking Status: Current Every Day Smoker Chew tobacco use (# tins/day): No Frequency of alcohol use: None Drug Abuse: None Family History: None Patient has suicidal ideation: No Patient has homicidal ideation: No - Past Medical History Cardiac Medical History: Denies: Hx Coronary Artery Disease, Hx Heart Attack, Hx Hypertension Pulmonary Medical History: Denies: Hx Asthma, Hx Bronchitis, Hx COPD, Hx Pneumonia Neurological Medical History: Denies: Hx Cerebrovascular Accident, Hx Seizures Endocrine Medical History: Reports: Hx Diabetes Mellitus Type 2 Renal/ Medical History: Denies: Hx Peritoneal Dialysis GI Medical History: Reports: Hx Gastroesophageal Reflux Disease Musculoskeletal Medical History: Denies Hx Arthritis Psychiatric Medical History: Reports: Hx Anxiety, Hx Depression - anxiety Past Surgical History: Reports: Hx Gynecologic Surgery - Rt. oophorectomy - Immunizations Immunizations up to date: Yes Hx Diphtheria, Pertussis, Tetanus Vaccination: Yes Review of Systems - Review of Systems Constitutional: Malaise EENT: No symptoms reported Cardiovascular: See HPI Respiratory: No symptoms reported Gastrointestinal: See HPI Genitourinary: See HPI Musculoskeletal: See HPI Skin: No symptoms reported Neurological/Psychological: No symptoms reported Physical Exam - Vital signs Notes: Reviewed and as charted. Please see paper chart and monitor captures. - Notes Notes: Vital signs reviewed, please refer to chart. Patient is normocephalic, atra umatic. Pupils equal round, reactive to light. Neck is supple without meningismus. Heart is regular rate and rhythm. Lungs are clear to auscultation bilaterally. Chest wall is tender to palpation both anteriorly and posteriorly. Chest wall excursion is equal bilaterally. Abdomen is soft, nontender, normoactive bowel sounds throughout. Extremities without cyanosis, clubbing, edema. No posterior calf tenderness. Peripheral pulses are equal. Skin is warm and dry. Patient is awake, alert, neurological exam is nonfocal. Course - Re-evaluation Re-evalutation: 01/29/19 12:50 Patient presents emergency department for evaluation. Her pain is clearly musculoskeletal. She has absolutely no risk factors for pulmonary embolus. She has no physical signs of DVT. Imaging was found to be negative. Urinalysis did reveal large leukocyte Estrace. Given her urinary frequency and vomiting, she will be treated for UTI. She is given anti-inflammatories, nausea medication. Sent home with prescriptions for that as well as antibiotic. She is to return to the ED with worsening or new concerning symptoms of any sort. - Laboratory Laboratory results interpreted by me: 01/29/19 09:10 Ur Leukocyte Esterase LARGE H Discharge - Discharge Clinical Impression: Chest wall pain Urinary tract infection Qualifiers: Urinary tract infection type: site unspecified Hematuria presence: without hematuria Qualified Code(s): N39.0 - Urinary tract infection, site not specified Nausea and vomiting Qualifiers: Vomiting Intractability: non-intractable Condition: Good Disposition: HOME, SELF-CARE Instructions: Antinausea Medication ([facility]), Nitrofurantoin ([facility]), Urinary Tract Infection ([facility]) Additional Instructions: Take medications as prescribed. Frequent liquids by mouth. Follow-up with your doctor next week. Return to the emergency department with worsening or new concerning symptoms. Prescriptions: Naproxen [Naprosyn 375 Mg Tablet] 375 mg PO BID #20 tablet Nitrofurantoin Macrocrystal [Macrodantin] 100 mg PO BID #10 capsule Ondansetron [Zofran Odt 4 mg Tablet] 1 tab PO Q4H PRN #15 tab.rapdis PRN Reason: For Nausea/Vomiting
== END 2019-01-29 11:35 | disposition home or self-care (01) ==
LOC: ER 07:04
DX: N39.0 Urinary tract infection, site not specified (principal); R07.89 Other chest pain; R06.02 Shortness of breath; R06.00 Dyspnea, unspecified; R53.81 Other malaise; F17.200 Nicotine dependence, unspecified, uncomplicated; E11.9 Type 2 diabetes mellitus without complications; Z88.6 Allergy status to analgesic agent
CPT/HCPCS: 99285; 81025; 81001; 71046; S0119

== ENCOUNTER 2020-04-06 23:02 | Emergency (ER) | payer SELFPAY ==
--- NOTE | 2020-04-07 00:06 | ER Document Report ---
ED Medical Screen (RME) - General Chief Complaint: Toothache Stated Complaint: TOOTH PAIN Time Seen by Provider: 04/07/20 00:02 Notes: HPI: 24-year-old female presenting with dental pain for a month. Patient complains of pain to the right lower molars. Patient began having swelling adjacent to the teeth 1 week ago. Now with difficulty opening the mouth. No definitive fevers PHYSICAL EXAMINATION: Patient appears to have a fluctuant area adjacent to the left first and second molars right lower jaw. Slight facial swelling is noted I have greeted and performed a rapid initial assessment of this patient. A comprehensive ED assessment and evaluation of the patient, analysis of test results and completion of medical decision making process will be conducted by an additional ED providers. TRAVEL OUTSIDE OF THE [place] IN LAST 30 DAYS: No - Related Data Allergies/Adverse Reactions: acetaminophen Allergy (Severe, Verified 01/17/19 11:24) Swelling of hands and/or feet hydrocodone [From Vicodin] Adverse Reaction (Severe, Verified 01/17/19 11:24) Vomiting Past Medical History - Past Medical History Cardiac Medical History: Denies: Hx Coronary Artery Disease, Hx Heart Attack, Hx Hypertension Pulmonary Medical History: Denies: Hx Asthma, Hx Bronchitis, Hx COPD, Hx Pneumonia Neurological Medical History: Denies: Hx Cerebrovascular Accident, Hx Seizures Endocrine Medical History: Reports: Hx Diabetes Mellitus Type 2 Renal/ Medical History: Denies: Hx Peritoneal Dialysis GI Medical History: Reports: Hx Gastroesophageal Reflux Disease Musculoskeltal Medical History: Denies Hx Arthritis Psychiatric Medical History: Reports: Hx Anxiety, Hx Depression - anxiety Past Surgical History: Reports: Hx Gynecologic Surgery - Rt. oophorectomy - Immunizations Immunizations up to date: Yes Hx Diphtheria, Pertussis, Tetanus Vaccination: Yes Physical Exam - Vital signs Vitals: Temp Pulse Resp BP Pulse Ox 98.5 F 86 16 163/96 H 98 04/06/20 23:24 04/06/20 23:24 04/06/20 23:24 04/06/20 23:24 04/06/20 23:24 Course - Vital Signs Vital signs: Temp Pulse Resp BP Pulse Ox 98.5 F 86 16 163/96 H 98 04/06/20 23:24 04/06/20 23:24 04/06/20 23:24 04/06/20 23:24 04/06/20 23:24
[2020-04-07] MEDS ORDERED: HYDROCODONE/ACETAMINOPHEN 5-325 MG TABLET PO ONE (00:58)
[2020-04-07] MEDS ORDERED: HYDROCODONE/ACETAMINOPHEN 5-325 MG (6 TAB/ER DISP) PO PRN (00:58)
[2020-04-07] MEDS ORDERED: CLINDAMYCIN HCL 150 MG CAPSULE PO ONE (00:58)
[2020-04-07 01:24] VITALS: BP 164/82
--- NOTE | 2020-04-07 05:57 | ER Document Report ---
Entered by TOMÁS BROWN SCRIBE 04/07/20 0057 Acting as scribe for:BEVERLEY RAZO IV, MD ED Oral Problem - General Chief Complaint: Toothache Stated Complaint: TOOTH PAIN Time Seen by Provider: 04/07/20 00:02 Mode of Arrival: Ambulatory Information source: Patient Notes: This 24 year old female patient presents to the ED today with complaints of dental pain for the past x1 month. Patient states that "I have a hole in my tooth" and reports a possible abscess and pain to her right lower molars. She reports that the right side of her jaw began to swell this past x1 week. TRAVEL OUTSIDE OF THE [place] IN LAST 30 DAYS: No - Related Data Allergies/Adverse Reactions: No Known Allergies Allergy (Unverified 04/07/20 00:08) Past Medical History - General Information source: Patient, [facility] Records - Social History Smoking Status: Unknown if Ever Smoked Cigarette use (# per day): No Chew tobacco use (# tins/day): No Smoking Education Provided: No Frequency of alcohol use: None Drug Abuse: None Lives with: Family Family History: Reviewed & Not Pertinent Patient has suicidal ideation: No Patient has homicidal ideation: No Endocrine Medical History: Reports: Hx Diabetes Mellitus Type 2 GI Medical History: Reports: Hx Gastroesophageal Reflux Disease Psychiatric Medical History: Reports: Hx Anxiety, Hx Depression Past Surgical History: Reports: Hx Gynecologic Surgery - Rt. oophorectomy - Immunizations Immunizations up to date: Yes Hx Diphtheria, Pertussis, Tetanus Vaccination: Yes Review of Systems - Review of Systems Constitutional: No symptoms reported EENT: See HPI, Dental problem, Other - Jaw swelling Cardiovascular: No symptoms reported Respiratory: No symptoms reported Gastrointestinal: No symptoms reported Genitourinary: No symptoms reported Female Genitourinary: No symptoms reported Musculoskeletal: No symptoms reported Skin: No symptoms reported Hematologic/Lymphatic: No symptoms reported Neurological/Psychological: No symptoms reported -: Yes All other systems reviewed and negative Physical Exam - Vital signs Vitals: Temp Pulse Resp BP Pulse Ox 98.5 F 86 16 163/96 H 98 04/06/20 23:24 04/06/20 23:24 04/06/20 23:24 04/06/20 23:24 04/06/20 23:24 - General General appearance: Alert In distress: None - HEENT Head: Normocephalic, Atraumatic Eyes: Normal Pupils: PERRL Mouth/Lips: Other - Significant gingival swelling noted beside tooth 32. No evidence of cavities or drainage. No pointing appreciated. No trismus or submandibular swelling - Respiratory Respiratory status: No respiratory distress Chest status: Nontender Breath sounds: Normal Chest palpation: Normal - Cardiovascular Rhythm: Regular Heart sounds: Normal auscultation Murmur: No Friction rub: No Gallop: None auscultated - Abdominal Inspection: Normal Distension: No distension Bowel sounds: Normal Tenderness: Nontender - Abdomen soft Organomegaly: No organomegaly - Back Back: Normal, Nontender - Extremities General upper extremity: Normal inspection General lower extremity: Normal inspection - Neurological Neuro grossly intact: Yes Orientation: AAOx4 - Psychological Associated symptoms: Normal affect, Normal mood - Skin Skin Temperature: Warm Skin Moisture: Dry Skin Color: Normal Course - Re-evaluation Re-evalutation: 04/07/20 01:00 Diagnosis, plan of treatment discussed with patient. All questions were answered prior to discharge. Emergency signs and symptoms, reasons to return to the ED discussed with the patient. - Vital Signs Vital signs: Temp Pulse Resp BP Pulse Ox 98.5 F 86 16 163/96 H 98 04/07/20 00:06 04/06/20 23:24 04/06/20 23:24 04/06/20 23:24 04/06/20 23:24 Discharge - Discharge Clinical Impression: Dental abscess Condition: Good Disposition: HOME, SELF-CARE Instructions: Clindamycin ([facility]) Additional Instructions: Return to the Emergency Department without delay if any worse. Contact the [facility] on 04/09/2020 at [phone] to schedule a follow-up appointment. HOME CARE INSTRUCTIONS & INFORMATION: Thank you for choosing us for your medical needs. We hope you're satisfied with the care you received. After you leave, you must properly care for your problem and, at the same time, observe its progress. Any condition can change. Some illnesses can change rapidly over hours or days. If your condition worsens, return to the Emergency Department or see your physician promptly. ABOUT YOUR X-RAYS AND EKG'S: If you had an EKG or X-rays taken, they have been read by the Emergency Physician. The X-rays and EKG's will also be read by a Radiologist or Counter Checker within 24 hours. If discrepancies are noted, you will be notified by telephone. Please be certain the ED has a correct telephone number & address where you can be reached. Also, realize that some fractures or abnormalities do not show up on initial X-rays. If your symptoms continue, see your physician. ABOUT YOUR LABORATORY TEST: If you had laboratory tests, the results have been reviewed by the Emergency Physician. Some test results (for example cultures) may not be available for several days. You will be contacted if any test result shows you need additional treatment. Please be certain the ED has a correct telephone number and address where you can be reached. ABOUT YOUR MEDICATIONS: You will receive instructions on how to take your medicine on the prescription label you receive. Additional information may be provided by the Pharmacy. If you have questions afterwards, call the ED for clarification or further instructions. Some prescribed medications may cause drowsiness. Do not perform tasks such as driving a car or operating machinery without consulting your Pharmacist. If you feel you need a refill of pain medication, your condition will need re-evaluation. Please do not call for a refill of any medication. ABOUT YOUR SIGNATURE: Signature of this document acknowledges to followin. Understanding that you received emergency treatment and that you may be released before al medical problems are known or treated. Please be certain the ED has a correct phone number & address where you can be reached. 2. Acknowledgement that you will arrange for follow-up care as recommended. 3. Authorization for the Emergency Physician to provide information to your follow-up Physician in order to maximize your care. AT ANY TIME, IF YOUR SYMPTOMS CHANGE SIGNIFICANTLY OR WORSEN OR YOU DEVELOP NEW SYMPTOMS, RETURN TO THE EMERGENCY DEPARTMENT IMMEDIATELY FOR RE-EVALUATION. OUR GOAL IS TO PROVIDE EXCELLENT MEDICAL CARE! WE HOPE THAT WE HAVE MET YOUR EXPECTATIONS DURING YOUR EMERGENCY DEPARTMENT VISIT AND THAT YOU FEEL YOU HAVE RECEIVED EXCELLENT CARE! Dental Infection or Abscess You have an infection, perhaps an abscess (pus formation) of the gum around one of your teeth, which is probably decayed. If there is an abscess, it may drain on its own or it may need to be opened or lanced. Severe swelling or drainage around a tooth usually means a deep dental abscess which usually requires evaluation and treatment by a dentist or oral surgeon. Antibiotics may be prescribed while awaiting dental treatment. If you develop high fever with chills, worsening pain, or increasing swelling in the area, see a dentist or oral surgeon immediately or return to the Emergency Department immediately. Prescriptions: Hydrocodone/Acetaminophen [[place] 5-325 mg Tablet] 1 tab PO Q6HP PRN #12 tablet PRN Reason: pain Clindamycin HCl [Cleocin 150 mg Capsule] 450 mg PO TID 10 Days #90 capsule I personally performed the services described in the documentation, reviewed and edited the documentation which was dictated to the scribe in my presence, and it accurately records my words and actions.
== END 2020-04-07 01:32 | disposition home or self-care (01) ==
LOC: ER 23:02
DX: K04.7 Periapical abscess without sinus (principal); K08.89 Other specified disorders of teeth and supporting structures; E11.9 Type 2 diabetes mellitus without complications
CPT/HCPCS: 99282